=== PATIENT | female | born 1975 | race Asian ===

== ENCOUNTER 2021-07-25 23:32 | Emergency (ER) | payer OTHER ==
[~2021-07-25] VITALS: Ht 149.9 cm; Wt 68.0 kg
[2021-07-26] MEDS ORDERED: DiphenhydrAMINE HCL 50 MG/ML VIAL IM ONE (00:45)
[2021-07-26] MEDS ORDERED: PredniSONE 20 MG TABLET PO ONE (00:45)
[2021-07-26] MEDS ORDERED: FAMOTIDINE 20 MG TABLET PO ONE (00:45)
[2021-07-26] MEDS ORDERED: DiphenhydrAMINE/ZINC ACET 30 GM CREAM TP ONE (01:30)
[2021-07-26] MEDS ORDERED: PRED20 PO (01:49)
[2021-07-26 02:00] VITALS: BP 135/85
== END 2021-07-26 02:00 | disposition home or self-care (01) ==
LOC: EMS 23:37
DX: T78.1XXA Other adverse food reactions, not elsewhere classified, initial encounter (principal); X58.XXXA Exposure to other specified factors, initial encounter
CPT/HCPCS: 96372; 99284; J1200; J7512